=== PATIENT | male | born 1975 | race African-American/Black ===

== ENCOUNTER 2020-07-04 21:12 | Inpatient (IN) | payer OTHER ==
[~2020-07-04] VITALS: Ht 180.3 cm; Wt 81.6 kg
--- NOTE | ~2020-07-04 | HC ---
[facility] [place] [address] CONSULTATION Name: ZAK WORKMAN Room #: [facility]#: [id number] Admission: 07/04/20 Attend Phys: Discharge: Date of : 71 Report #: [id number] THIS REPORT FOR: cc: [facility] - No family physician/PCP [facility] - family physician/PCP Miguelangel Ledesma MD [facility] ~ CC: [facility] physician/PCP Rich Kumar DATE OF SERVICE: 07/04/2020 REASON FOR CONSULTATION: Chest pain, acute GA. HISTORY OF PRESENT ILLNESS: The patient is a 45-year-old gentleman with history of hypertension, borderline diabetes, tobacco dependency and chest pain. I have been asked to see him emergently when he presented to the Emergency Department with an hour to an hour and a half of chest pain. EKG demonstrated extensive anterolateral ST segment elevation. He has ongoing pain with mild diaphoresis and shortness of breath. He reports a similar episode in [place] in 2005. Medical therapy was recommended. No prior coronary angiograms. He does report a history of "clotting problems." He was hospitalized, he thinks [facility], about 4-6 months ago, was placed on Coumadin, although never took the medicine or followed up with treatment. He denies orthopnea or paroxysmal nocturnal dyspnea. No history of near syncope or syncope. ALLERGIES: No known drug allergies. MEDICATIONS: He takes no medicines. PAST MEDICAL HISTORY: Medical records have been reviewed and include a history of hypertension, borderline diabetes, clotting problems, possible stroke sometime in the past. SOCIAL HISTORY: He is a smoker, half pack a day. Drinks occasionally. FAMILY HISTORY: Unremarkable for premature coronary artery disease. REVIEW OF SYSTEMS: All systems negative except as that noted above. PHYSICAL EXAMINATION: GENERAL: Reveals an anxious gentleman who is alert with ongoing pain. VITAL SIGNS: Blood pressure is 160/80, heart rate of 86 and regular. He is afebrile, 5 feet 11 inches tall, 182 pounds. HEENT: There are neither xanthelasma, subcutaneous xanthomata, oral mucosal or digital cyanosis or kyphoscoliosis present. CHEST: Clear to auscultation and percussion. [facility] [address] [place] [address] CONSULTATION Name: ZAK WORKMAN Room #: [facility]#: [id number] Admission: 07/04/20 Attend Phys: Discharge: Date of : 71 Report #: [id number] CARDIAC: Regular rate and rhythm with normal S1, S2. Heart sounds are distant. ABDOMEN: Soft and nontender. EXTREMITIES: Without cyanosis, clubbing or edema. Radial pulses are 2+. NEUROLOGIC: He is alert with a nonfocal exam. LABORATORY DATA: Labs remain pending. Chest x-ray demonstrates mild increase in upper lobe markings. EKG is detailed above. IMPRESSION: 1. Extensive anterolateral myocardial infarction, acute. 2. Acute systolic heart failure. 3. Hypertension. 4. Prediabetes. 5. Tobacco dependency. 6. History of clotting problems, precise nature of this to be determined. 7. History of possible prior stroke. 8. History of noncompliance. RECOMMENDATIONS: 1. Therapy with aspirin, heparin, beta blockade. 2. Urgent coronary angiography. I have outlined the angiographic procedure in detail including its associated risks as well as the risks associated with a probable percutaneous intervention. After a thorough discussion of the procedure, its risks and alternatives and after answering his questions, he is agreeable to proceeding. By: 2148 2203 Miguelangel Ledesma MD, [facility] /nt
[2020-07-04 21:21] VITALS: BP 152/101
--- NOTE | 2020-07-04 21:38 | NUR ---
consent for cardiac cath signed
[2020-07-04] MEDS ORDERED: WARFARIN SODIUM1 MG PO (21:41)
[2020-07-04 21:42] LABS: ABSOLUTE NEUTROPHILS 2.9 thou/uL (1.4-8.2); BASOPHILS 1.1 % (0.0-2.0); EOSINOPHILS 1.1 % (0.0-3.0); HEMATOCRIT 43.1 % (42.0-52.0); HEMOGLOBIN 14.3 gm/dL (14.0-18.0); LYMPHOCYTES 29.4 % (24.0-44.0); MCHC 33.1 g/dL (28.0-37.0); MCV 96.6 fL (80.0-100.0); MONOCYTES 7.6 % (1.0-8.0); PLATELET COUNT 197 thou/uL (150-400); POLYS 60.8 % (36.0-66.0); RBC 4.46 mil/uL (4.50-6.00); RDW 14.2 % (10.5-14.5); WBC 4.8 thou/uL (4.0-11.0)
[2020-07-04 21:48] LABS: CALCIUM 9.1 mg/dL (8.5-10.1); CREATININE 1.3 mg/dL (0.7-1.3); POTASSIUM 3.7 mmol/L (3.5-5.1)
[2020-07-04 21:54] LABS: TROPONIN-I 0.08 ng/mL (<0.06)
--- NOTE | 2020-07-04 21:57 | NUR ---
Pt reports that he cannot remember the name of his medications. Reports that he has not filled his medications for some time.
[2020-07-04 23:15] VITALS: BP 166/106
[2020-07-04 23:30] VITALS: BP 171/107
--- NOTE | 2020-07-04 23:39 | CATHLAB ---
[facility] [place] [address] INVASIVE PROCEDURE REPORT Name: ZAK WORKMAN Room #: 160-3 ADM IN .R.#: [id number] Admission: 07/04/20 Attend Phys: Marcellus Garcia MD Discharge: Date of : 71 Report #: [id number] THIS REPORT FOR: cc: FAM - No family physician/PCP FAM - No family physician/PCP Miguelangel Ledesma MD [facility] ~ APPROVED REPORT Study performed: 07/04/2020 21:38:46 Patient Details Patient Status: Out-Patient Room #: The patient is a 45 year-old male Event Personnel Miguelangel Ledesma Religion Teacher, Tami Varela RN RN, Liang Villegas RN RN, Cheryl Sanchez RTR Monitor, Alice Gallagher Procedures Performed Art Access - L femoral artery* Left Heart Cath w/or w/o Coronaries [id number] [facility] Place w/wo Plasty Single LAD [id number] 02256 Initial Mod Sed Same Phys/QHP Gr5y 898336 02469 Mod Sed Same Phys/QHP Ea [id number] Hemostasis w/ Mynx Indication Chest pain Procedure Narrative The Right Groin^ was infiltrated with 1% Lidocaine subcutaneous anesthesia. A PINNACLE 6FR Sheath #[id number] sheath was inserted into the RFA^. Coronary angiography was performed using coronary diagnostic catheters. The right coronary system was accessed and visualized with a JR4 catheter. The left coronary system was accessed and visualized with a JL4 catheter. The left ventricle was accessed and visualized with a PIGTAIL catheter. Left ventriculogram was performed in 30 degree projection. Closure device was deployed with a 6 Fr MYNXGRIP 6/7F #[id number]. The patient tolerated the procedure well and there were no complications associated with the procedure. There was no hematoma. Intraoperative Conscious Sedation Sedation start time: 2203 Case end Time: 2305 [facility] [address] [place] [address] INVASIVE PROCEDURE REPORT Name: ZAK WORKMAN Room #: 160-3 [facility] IN ..#: [id number] Admission: 07/04/20 Attend Phys: Marcellus Garcia MD Discharge: Date of : 71 Report #: [id number] Fentanyl 50 mcg Versed 1 mg Fluoro Time: 12.40 minutes Dose: DAP 9663.20 cGycm2 1291 mGy Contrast Type and Amount: Visipaque 370 ml Coronary Angiography The patient's coronary anatomy is right dominant. Diagnostic Cath Left Main Normal left main LAD Occlusion of the mid LAD. Both LAD and diagonal branch occlusions had appearance suggesting possible coronary embolism Diagonal 1 Occlusion of the proximal first diagonal branch Circumflex Normal circumflex OM1 Normal first marginal branch OM2 Large bifurcating second marginal branch, angiographically normal Right Coronary The right coronary was angiographically normal R PDA Moderately large posterior descending, angiographically normal Left Ventriculography The left ventricle is moderately dilated in size with abnormal contractility. The left ventricular ejection fraction is estimated to be 25%. Left ventricular wall motion abnormalities are present. There is no mitral insufficiency. Hemodynamics The aortic pressure is 130/83 mmHg with a mean of 106 mmHg. The left ventricular pressure is 144/4 mmHg with a mean of mmHg. The left ventricular end diastolic pressure is 39 mmHg. PCI Technique Lesion Anticoagulation was achieved with Heparin, Integrilin. Patient was preloaded with Plavix. Percutaneous coronary intervention was performed on the mid left anterior descending artery segment. The lesion stenosis prior to intervention was 100% with MYRON 0 flow. A LAUNCHER 6FR EBU 3.5 #[id number] Guide Catheter was used to engage the left main ostium. A Luge Wire .014 x 182CM #[id number] Interventional Guidewire was used to cross the lesion. BALLOON DILATION A Balloon catheter TREK RX 2.5 X 15 #[id number] was inserted and inflated [facility] [address] [place] [address] INVASIVE PROCEDURE REPORT Name: ZAK WORKMAN Room #: [address] [place] [address] [place] [facility]#: [id number] Admission: 07/04/20 Attend Phys: Marcellus Garcia MD Discharge: Date of : 71 Report #: [id number] up to 14.00atm for 55seconds. Repeat angiography revealed the following post-dilatation results: MYRON II flow restored. Appeared to be probably embolic occlusion of the apical portion of the LAD. Additional Inflation: 8.00atm for 25seconds. Additional Inflation: 8.00atm for 18seconds. There was improvement in flow with multiple low pressure balloon inflations STENT DEPLOYMENT A drug-eluting stent RESOLUTE FERNANDO RX 2.0 X 26 #[id number] was inserted and inflated up to 12.00atm for 35seconds. POST STENT DEPLOYMENT BALLOON DILATION A Balloon catheter TREK NC RX 3.0 X 15 #[id number] was inserted and inflated up to 18.00atm for 30seconds. Additional Inflation: 18.00atm for 33seconds. Additional Inflation: 18.00atm for 31seconds. Final angiography reveals 0 % stenosis with MYRON 2 flow. COMMENTS The very apical portion of the LAD remained occluded despite several low pressure inflations. The LAD and diagonal branch occlusions may have been from embolic disease down the coronary rather than fixed atherosclerotic disease. Conclusion 1. Severe global left ventricular dysfunction with left ventricular enlargement. Ejection fraction 25% 2. LV dysfunction appeared out of proportion to the severity of the coronary disease 3. Normal left main 4. Probable embolic occlusion of the mid LAD and first diagonal branches. Flow in the LAD was restored with a 3.0 x 26 mm Resolute stent. There was apical occlusion of the LAD beyond the stent. The diagonal branch, also occluded, appeared to be a relatively small vessel and was not intervened upon 5. Normal circumflex and right coronary arteries <ELECTRONICALLY SIGNED> By: Miguelangel Ledesma MD, [facility] 07/04/202338 38 38 Miguelangel Ledesma MD, FACC /INF
[2020-07-04 23:45] VITALS: BP 168/100
[2020-07-05] VITALS (13 sets, daily range): BP systolic 133–1147; BP diastolic 78–102
--- NOTE | 2020-07-05 03:57 | NUR ---
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 Pt had a stent placed. Upon arrival to the floor, pt has been sleeping but arousable. Unable to completed admission assessment and education at this time due to pt sleeping. No sign of distress noted. Right groin site cleanh, dry and intact. Pt did verbalize an episode of chest pain. Pain med administered to pt. Heparin ordered and infusing. Pt continues to sleep throughout the night. No further needs at this time.
[2020-07-05 04:58] LABS: CHOLESTEROL 180 mg/dL (<200); HDL CHOLESTEROL 70 mg/dL (>40); LDL CHOLESTEROL 100 mg/dL (<100); SERUM ASSESSMENT Clear; TC:HDL 2.6 Ratio (Not establshd); TRIGLYCERIDE 51 mg/dL (<150); VLDL 10 mg/dL (<40)
[2020-07-05 05:01] LABS: CREATININE 1.2 mg/dL (0.7-1.3); POTASSIUM 4.4 mmol/L (3.5-5.1)
[2020-07-05 05:32] LABS: TROPONIN-I 194.73 ng/mL (<0.06)
--- NOTE | 2020-07-05 11:38 | EKG ---
[facility] [place] [address] ELECTROCARDIOGRAM REPORT Name: ZAK WORKMAN Room #: 219-P ADM IN M.R.#: [id number] Admission: 07/04/20 Attend Phys: Marcellus Garcia MD Discharge: Date of : 71 Report #: [id number] THIS REPORT FOR: cc: SUPRIYA - No family physician/PCP FAM - No family physician/PCP Sheldon Lazaro MD ~ THIS REPORT FOR: //name// [facility] ED Test Date: 2020-07-04 Test Time: 21:14:25 Pat Name: ZAK WORKMAN Department: Room: 219 Gender: M Sulfonator Operator: JEROME : 1975 Requested By: Rich Kumar Order Number: [id number] MD: Sheldon Lazaro Measurements Intervals [place] Rate: 86 P: 8 ID: 179 QRS: -20 QRSD: 113 T: 2 QT: 387 QTc: 463 Interpretive Statements Sinus rhythm Inferior infarct, old Anterolateral infarct, acute (LAD) Compared to ECG 06/05/1996 18:13:00 Myocardial infarct finding now present Sinus arrhythmia no longer present ST (T wave) deviation no longer present Electronically Signed On 07-05-2020 11:38:14 CDT by Sheldon Lazaro [email or web address] <ELECTRONICALLY SIGNED> By: Sheldon Lazaro MD 07/05/20 1138 13 13 Sheldon Lazaro MD /EPI
--- NOTE | 2020-07-05 11:40 | EKG ---
[facility] [place] [address] ELECTROCARDIOGRAM REPORT Name: ZAK WORKMAN Room #: 219-P ADM IN M.R.#: [id number] Admission: 07/04/20 Attend Phys: Marcellus Garcia MD Discharge: Date of : 71 Report #: [id number] THIS REPORT FOR: cc: SU[facility]IYA - Mary family physician/PCP SUPRIYA - No family physician/PCP Sheldon Lazaro MD ~ THIS REPORT FOR: //name// [facility] Test Date: 2020-07-05 Test Time: 07:55:59 Pat Name: ZAK WORKMAN Department: Room: 219 P Gender: M Pollution Control Chemist: Jeff ENRIQUEZ : 1975 Requested By: Miguelangel Ledesma Order Number: [id number] MD: Sheldon Lazaro Measurements Intervals [place] Rate: 84 P: 63 HI: 176 QRS: 2 QRSD: 121 T: 158 QT: 429 QTc: 508 Interpretive Statements Sinus rhythm Ventricular bigeminy Nonspecific intraventricular conduction delay Inferior infarct, old Resolving anterior infarct changes. Compared to ECG 07/05/2020 07:27:11 Electronically Signed On 07-05-2020 11:40:18 CDT by Sheldon Lazaro [email or web address] <ELECTRONICALLY SIGNED> By: Sheldon Lazaro MD 07/05/20 1140 0755 0755 Sheldon Lazaro MD /EPI
--- NOTE | 2020-07-05 11:45 | 2DMMODE ---
[facility] [place] [address] 2 D/M-MODE ECHOCARDIOGRAM Name: WORKMANZAK GONGORA Bianca Room #: 219-P ADM IN .R.#: [id number] Admission: 07/04/20 Attend Phys: Marcellus Garcia MD Discharge: Date of : 71 Report #: [id number] THIS REPORT FOR: cc: FAM - No family physician/PCP FAM - No family physician/PCP Miguelangel Ledesma MD [facility] ~ APPROVED REPORT Study performed: 07/05/2020 10:27:22 EXAM: Comprehensive 2D, Doppler, and color-flow Echocardiogram Patient Location: Bedside Room #: 219 Status: on-call BSA: 2.07 HR: 83 bpm BP: 167/92 mmHg Other Information Study Quality: Good Risk Factors: Cardiac Risk Factors: HTN, DM, Smoking Indications CAD Cardiomyopathy 2D Dimensions IVSd: 13.83 (7-11mm) LVOT Diam: 24.00 (18-24mm) LVDd: 62.95 mm PWd: 11.23 (7-11mm) Ascending Ao: 31.31 (22-36mm) LVDs: 59.43 (25-40mm) Aortic Root: 36.17 mm LV Single Plane 4CH: 23.20 % LV Single Plane 2CH: 25.82 % Biplane EF: 23.1 % Volumes Left Atrial Volume (Systole) Single Plane 4CH: 73.71 mL Single Plane 2CH: 61.41 mL Pulmonary Valve [facility] [address] [place] [address] 2 D/M-MODE ECHOCARDIOGRAM Name: ZAK WORKMAN Room #: 219-P ADM IN M.R.#: [id number] Admission: 07/04/20 Attend Phys: Marcellus Garcia MD Discharge: Date of : 71 Report #: [id number] PV Peak Rudolph.: 0.60 m/s PV Peak Gr.: 1.45 mmHg Tricuspid Valve RAP Estimate: 7.00 mmHg Left Ventricle Left ventricle is dilated. There is global hypokinesis of the left ventricle. Mild concentric left ventricular hypertrophy. Left ventricular systolic function is severely decreased. 2.5 cm x 3.0 cm mobile, ovoid irregular bordered thrombus at the the apex of the left ventricle. LVEF is 20-25%. This study is not technically sufficient to allow evaluation of the LV diastolic function. Right Ventricle The right ventricle is normal size. The right ventricular systolic function is normal. Atria Left atrium is mildly dilated. The right atrium size is normal. Aortic Valve The aortic valve is normal in structure. No aortic regurgitation is present. There is no aortic valvular stenosis. Mitral Valve The mitral valve is normal in structure. Moderate mitral regurgitation. No evidence of mitral valve stenosis. Tricuspid Valve The tricuspid valve is normal in structure. Trace tricuspid regurgitation. Unable to assess PA pressure. Pulmonic Valve The pulmonary valve is normal in structure. Trace pulmonic regurgitation. Great Vessels The aortic root is normal in size. The ascending aorta is normal in size. IVC is normal in size and collapses >50% with inspiration. Pericardium There is no pericardial effusion. Critical Notification [facility] [address] [place] [address] 2 D/M-MODE ECHOCARDIOGRAM Name: JACINTAZAK Bianca Room #: 219-P [facility]#: [id number] Admission: 07/04/20 Attend Phys: Marcellus Garcia MD Discharge: Date of : 71 Report #: [id number] Critical Value: Yes Physician Notified <Conclusion> Left ventricular systolic function is severely decreased. There is global hypokinesis of the left ventricle. 2.5 cm x 3.0 cm mobile, ovoid irregular bordered thrombus at the the apex of the left ventricle. LVEF is 20-25%. The aortic valve is normal in structure. No aortic regurgitation or stenosis The mitral valve is normal in structure. Moderate mitral regurgitation. Unable to assess pulmonary artery pressure. There is no pericardial effusion. <ELECTRONICALLY SIGNED> By: Miguelangel Ledesma MD, [facility] 07/05/20 1145 1145 1145 Miguelangel Ledesma MD, FACC /INF
--- NOTE | 2020-07-05 14:09 | NUR ---
PT ASSESSED, VERY DROWSY BUT WOKE UP TO ANSWER QUESTIONS AND EAT A LITTLE, PT USING URINAL WHILE IN BED, HAVE NOT AMBULATED PT YET HE WANTS TO REST IN BED. PT STATED THAT HE LOST HIS APARTMENT AND WAS STAYING "WITH A FRIEND" WHEN HE HAD STEMI, WILL LET CM KNOW, VSS, AM MEDS GIVEN PER MD, WILL MONITOR
[2020-07-06 03:05] LABS: HBsAG-EMPLOYEE EXPOSURE Negative (Negative); HCV AB-EMPLOYEE EXPOSURE <0.1 (0.0-0.9)
[2020-07-06 04:45] VITALS: BP 112/80
[2020-07-06 05:13] LABS: AMP/METHAMP POSITIVE (Negative); BARBITURATES Negative (Negative); BENZODIAZEPINES Negative (Negative); COCAINE Negative (Negative); METHADONE Negative (Negative); OPIATES Negative (Negative); PCP Negative (Negative)
[2020-07-06 05:36] LABS: GLYCOHEMOGLOBIN (HGB A1C) 5.7 % (4.8-5.6)
--- NOTE | 2020-07-06 05:42 | NUR ---
Assumed pt care at 1900. Pt is awake and responsive but still dorwsy. No sign of distress noted. Pt was drowsy most of the shift. Responsed to RN. Pt is stable and able to answer questions appropriately. Denies any pain. Assessment completed and documented. Scheduled meds administered to pt. No acute events overnight. No further needs at this time.
[2020-07-06 08:10] VITALS: BP 140/80
[2020-07-06 12:30] VITALS: BP 135/75
[2020-07-06 12:35] VITALS: BP 98/56
[2020-07-06 13:14] VITALS: BP 107/67
[2020-07-06 16:15] VITALS: BP 130/84
--- NOTE | 2020-07-06 17:47 | NUR ---
ASSUMED PATIENT CARE AT 0700. HEPARIN GTT DC'D. DENIES CHEST. PROGRESSING TOWARDS POC GOALS.
--- NOTE | 2020-07-07 00:27 | NUR ---
PT IS ALERT AND ORIENTED X4. LUNGS ARE CLEAR. ABDOMEN IS FLAT BOWEL SOUNDS ACTIVE X4. DENIES ANY PAIN ISSUES. RIGHT GROIN SITE IS DRY AND INTACT NO HEMATOMA NOTED. ON ROOM AIR. VITALS ARE STABLE. WILL CONTINUE TO MONITOR AND ASSESS PER NURSING. NO ISSUES OR CONCERNS NOTED.
[2020-07-07] MEDS ORDERED: COREG6.25 MG PO (08:24)
[2020-07-07] MEDS ORDERED: LIPITOR40 MG PO (08:24)
[2020-07-07] MEDS ORDERED: CLOPIDOGREL75 MG PO (08:24)
[2020-07-07] MEDS ORDERED: COZAAR 50 MG TA50 M1 PO (08:24)
[2020-07-07] MEDS ORDERED: XARELTO20 MG PO (08:31)
[2020-07-07 08:40] VITALS: BP 105/58
--- NOTE | 2020-07-07 09:42 | NUR ---
PT ASSESSED, POC AND MEDS REVIEWED, PT VERBALIZED UNDERSTANDING, PT PROBABLY NEEDS TO GO TO A [facility] WHEN HE LEAVES HERE TODAY, SPOKE WITH LYRIC, AND SHE'LL TRY TO SET UP SOMETHING, DR SHOOK ON BOARD WITH PLANS, PT RESTING IN BED, WILL MONITOR AND PREPARE FOR DC
[2020-07-07 12:04] VITALS: BP 105/58
--- NOTE | 2020-07-07 12:59 | NUR ---
patient reports [place] plans to stay with friend. He only knows [place] patient lives. He does not have phone or contact info. Patient reports an [employer] close by. He needs transport to [facility]. [employer] at [facility] and [address], patient agreeable for cab voucher to that location. Patient has no health insurance. Rec samples from cardiology office for xerlto. Kushal vouched for other scripts in amount of $39.23. Patient given [facility] info. Sp with [facility] patient does not qualify for SS disability. Gave patient numbers for [facility] and SS disability. no further needs
--- NOTE | 2020-07-07 13:14 | NUR ---
PT LEFT VIA CAB FOR DESIRED DESTINATION-HIS "FRIEND'S HOUSE" IV AND TELE BOTH REMOVED, REVIEWED ALL DC INSTRUCTIONS INCLUDING MEDICATIONS AND WHEN TO TAKE THEM. PT GIVEN 1 MONTH'S SUPPLY OF ALL MEDS, AND VERBALIZED THAT HE WOULD RETURN FOR HIS FOLLOW UP APPT WITH CARDIOLOGY. PT TOOK ALL BELONGINGS HE LEFT.
== END 2020-07-07 13:05 | disposition home or self-care (01) | DRG 246 ==
LOC: ER 21:12 → TBACV 22:06 → 2N 23:40
PROVIDERS: Emergency Medicine; Internal Medicine; Nurse Practitioner Family; ADMIT Hospitalist; ATTEND Hospitalist
PROC: 4A023N7 Measurement of Cardiac Sampling and Pressure, Left Heart, Percutaneous Approach (ICD-10-PCS; principal; 2020-07-04)
PROC: 027034Z Dilation of Coronary Artery, One Artery with Drug-eluting Intraluminal Device, Percutaneous Approach (ICD-10-PCS; principal; 2020-07-04)
PROC: B211YZZ Fluoroscopy of Multiple Coronary Arteries using Other Contrast (ICD-10-PCS; 2020-07-04)
PROC: B215YZZ Fluoroscopy of Left Heart using Other Contrast (ICD-10-PCS; 2020-07-04)
DX: I21.4 Non-ST elevation (NSTEMI) myocardial infarction (principal); I50.21 Acute systolic (congestive) heart failure; F17.210 Nicotine dependence, cigarettes, uncomplicated; I11.0 Hypertensive heart disease with heart failure; I25.10 Atherosclerotic heart disease of native coronary artery without angina pectoris; R73.03 Prediabetes; Z86.718 Personal history of other venous thrombosis and embolism; Z79.01 Long term (current) use of anticoagulants; I25.2 Old myocardial infarction; Z86.73 Personal history of transient ischemic attack (TIA), and cerebral infarction without residual deficits; Z79.899 Other long term (current) drug therapy
CPT/HCPCS: 10081